=== PATIENT | male | born 1940 | race Caucasian/White ===

== ENCOUNTER 2018-04-19 16:34 | Outpatient (CLI) | payer MEDICARE ==
--- NOTE | 2018-04-19 18:22 | RAD ---
ABDOMEN TWO VIEW WITH ONE VIEW CHEST X-RAY 04/19/18 HISTORY: Constipation. COMPARISON: Abdomen radiograph from 2016. FINDINGS: Heart size is enlarged. Pulmonary arteries are enlarged. Mild increased interstitial markings. IMPRESSION: No dilated air filled loops of large or small bowel. No abnormal calcification projecting over the re nal shadows. Cardiac valve is noted. IMPRESSION: 1. No acute intra-abdominal abnormality. 2. Cardiomegaly with mild pulmonary venous congestion and early edema. 3. Pulmonary arterial hypertension. POS: [facility]
== END 2018-04-19 16:35 | disposition home or self-care (01) ==
LOC: SCSRAD 16:34
PROVIDERS: ATTEND Nurse Practitioner Family
DX: K59.00 Constipation, unspecified (principal); I11.0 Hypertensive heart disease with heart failure; I50.32 Chronic diastolic (congestive) heart failure; R06.02 Shortness of breath; R05 Cough; E66.9 Obesity, unspecified; Z98.890 Other specified postprocedural states; Z95.2 Presence of prosthetic heart valve; Z71.89 Other specified counseling; I51.7 Cardiomegaly; J81.1 Chronic pulmonary edema; I27.21 Secondary pulmonary arterial hypertension; R09.89 Other specified symptoms and signs involving the circulatory and respiratory systems
CPT/HCPCS: 36415; 74022; 80053; 83880; 84443; 85025

== ENCOUNTER 2018-04-25 10:44 | Outpatient (CLI) | payer MEDICARE ==
--- NOTE | 2018-04-25 12:03 | RAD ---
PA AND LATERAL CHEST XRAY: DATE: 04/25/18. HISTORY: The patient reports fluid on lungs. Followup evaluation. COMPARISON: 04/19/18. 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 Car diac silhouette does appear mildly enlarged. Pulmonary vasculature is within normal limits. There a re minimal linear densities at each lung base, probably related to mild scarring. Calcified granulom a ovaries the right lung base. Degenerative changes are again noted in the spine. There is a linear calcification seen in the retrosternal location which may represent pleural-based calcifications. T here has been no significant interval change from the prior exam. IMPRESSION: 1. No acute cardiopulmonary process. 2. Cardiomegaly without overt congestive heart failure. POS: [facility]
== END 2018-04-25 10:45 | disposition home or self-care (01) ==
LOC: SCSRAD 10:44
PROVIDERS: ATTEND Nurse Practitioner Family
DX: I50.32 Chronic diastolic (congestive) heart failure (principal); I48.2 Chronic atrial fibrillation; I27.21 Secondary pulmonary arterial hypertension; R05 Cough; R06.02 Shortness of breath; K59.00 Constipation, unspecified; R19.00 Intra-abdominal and pelvic swelling, mass and lump, unspecified site; I10 Essential (primary) hypertension; E66.9 Obesity, unspecified; I51.7 Cardiomegaly; Z71.89 Other specified counseling; Z98.890 Other specified postprocedural states
CPT/HCPCS: 71046; 83036; 83880; 85025

== ENCOUNTER 2019-01-31 08:51 | Outpatient (CLI) | payer MEDICARE ==
--- NOTE | 2019-01-31 11:59 | CT ---
CT abdomen and pelvis with IV and oral contrast HISTORY: Abdominal pain. Abdominal wall masses. COMPARISON: Multiple exams back to 12/21/2007. FINDINGS: Calcified granulomata at the lung bases and in the solid organs are consistent with healed granulomatous disease. Calcification throughout the arterial structures. Small renal cysts are now apparent. No evidence of bowel obstruction or inflammation. Degenerative changes lumbar spine. The oval homogeneous soft tissue density mass at the right anterolateral abdominal wall between the o blique musculature is 1.3 cm length by 0.4 cm depth, unchanged from 01/11/2016 exam. The oval well-circumscribed soft tissue density mass between the posterior oblique musculature at the left flank is 2.9 cm length by 1.3 cm depth, unchanged from the previous study. No new masses are apparent. Fat protrudes into a left inguinal hernia that does not contain bowel. IMPRESSION: Stable CT appearance of the bilateral abdominal wall masses. No new masses are apparent. Atherosclerosis. IMPRESSION: apparent.
== END 2019-01-31 08:52 | disposition home or self-care (01) ==
LOC: BICCT 08:51
PROVIDERS: ATTEND Nurse Practitioner Family
DX: R19.00 Intra-abdominal and pelvic swelling, mass and lump, unspecified site (principal); E78.5 Hyperlipidemia, unspecified; E53.8 Deficiency of other specified B group vitamins; I11.0 Hypertensive heart disease with heart failure; I50.32 Chronic diastolic (congestive) heart failure; D36.10 Benign neoplasm of peripheral nerves and autonomic nervous system, unspecified; M10.9 Gout, unspecified; K64.8 Other hemorrhoids; I48.2 Chronic atrial fibrillation; K57.30 Diverticulosis of large intestine without perforation or abscess without bleeding; R10.9 Unspecified abdominal pain; I70.90 Unspecified atherosclerosis; Z95.2 Presence of prosthetic heart valve; Z86.010 Personal history of colon polyps; Z71.89 Other specified counseling
CPT/HCPCS: 74177

== ENCOUNTER 2019-07-08 12:35 | Outpatient (CLI) | payer MEDICARE ==
--- NOTE | 2019-07-08 12:55 | RAD ---
Exam:3 views right ankle HISTORY: Pain. Gout. COMPARISON: None FINDINGS: Joint spaces are preserved. No fracture or malalignment. There is soft tissue swelling. IMPRESSION: Soft tissue swelling. No evidence of fracture or significant loss of joint space height.
== END 2019-07-08 12:36 | disposition home or self-care (01) ==
LOC: BICRAD 12:35
PROVIDERS: ATTEND Nurse Practitioner Family
DX: M25.571 Pain in right ankle and joints of right foot (principal); M10.9 Gout, unspecified; M25.471 Effusion, right ankle; E78.5 Hyperlipidemia, unspecified; I10 Essential (primary) hypertension; E66.9 Obesity, unspecified; I48.20 Chronic atrial fibrillation, unspecified; M79.89 Other specified soft tissue disorders; Z71.89 Other specified counseling; Z98.890 Other specified postprocedural states
CPT/HCPCS: 36415; 80053; 83520; 84550; 85025; 86200

== ENCOUNTER 2021-05-10 19:00 | Outpatient (CLI) | payer MEDICARE | END 2021-05-10 19:01 | disposition home or self-care (01) | LOC: SLEEPLAB 19:00 | PROVIDERS: ATTEND Internal Medicine Cardiovascular Disease | DX: G47.33 Obstructive sleep apnea (adult) (pediatric) (principal) | CPT/HCPCS: 95811 ==

== ENCOUNTER 2021-08-31 07:35 | Outpatient (CLI) | payer MEDICARE | END 2021-08-31 07:36 | disposition home or self-care (01) | LOC: CT 07:35 | PROVIDERS: ATTEND Family Medicine | DX: R19.00 Intra-abdominal and pelvic swelling, mass and lump, unspecified site (principal); R10.10 Upper abdominal pain, unspecified; N28.1 Cyst of kidney, acquired | CPT/HCPCS: 74178 ==

== ENCOUNTER 2021-10-07 09:32 | Outpatient (CLI) | payer MEDICARE | END 2021-10-07 09:33 | disposition home or self-care (01) | LOC: CT 09:32 | PROVIDERS: ATTEND Internal Medicine Cardiovascular Disease | DX: R51.9 Headache, unspecified (principal); I67.82 Cerebral ischemia; G93.89 Other specified disorders of brain | CPT/HCPCS: 70450 ==

== ENCOUNTER 2022-08-08 12:31 | Outpatient (CLI) | payer MEDICARE | END 2022-08-08 12:32 | disposition home or self-care (01) | LOC: TBSIIMAG 12:31 | PROVIDERS: ATTEND Family Medicine | DX: M51.14 Intervertebral disc disorders with radiculopathy, thoracic region (principal) | CPT/HCPCS: 72146 ==

== ENCOUNTER 2022-09-05 13:17 | Outpatient (CLI) | payer MEDICARE | END 2022-09-05 13:18 | disposition home or self-care (01) | LOC: RAD 13:17 | PROVIDERS: ATTEND Family Medicine | DX: R13.10 Dysphagia, unspecified (principal); K22.89 Other specified disease of esophagus | CPT/HCPCS: 74220 ==

== ENCOUNTER 2022-09-12 13:00 | Outpatient (CLI) | payer MEDICARE | END 2022-09-12 13:01 | disposition home or self-care (01) | LOC: BICRAD 13:00 | PROVIDERS: ATTEND Family Medicine | DX: R07.81 Pleurodynia (principal) ==

== ENCOUNTER 2022-09-23 10:26 | Inpatient (IN) | payer MEDICARE ==
[2022-09-23 11:05] LABS: #Eosinphils 0.2 thou/uL (0.0-0.7); #Lymphocytes 0.9 thou/uL (1.20-3.40); #Monocytes 0.8 thou/uL (0.11-0.59); #Neutrophils 6.8 thou/uL (1.40-6.50); %Basophils 0.6 % (0.0-1.0); %Eosinophils 2.2 % (0.0-10.0); %Lymphocytes 10.3 % (21.0-51.0); %Monocytes 8.8 % (0.0-10.0); %Neutrophils 78.2 % (42.0-75.0); Hemoglobin 7.8 g/dL (14.0-18.0); Mean Corpuscular HGB CONC 28.8 g/dL (32.0-36.0); Mean Corpuscular Hemoglobin 18.7 pg (27.0-31.0); Mean Corpuscular Volume 64.9 fl (78.0-98.0); Mean Platelet Volume 11.4 fL (7.4-10.4); Platelet Count 272 10x3/uL (130-400); RBC Distribution Width 18.9 % (11.5-14.5); Red Blood Cell (RBC) Count 4.17 mill/uL (4.70-6.10); White Blood Cell (WBC) Count 8.6 10x3/uL (4.8-10.8)
[2022-09-23 11:18] LABS: INR-International Normal Ratio 2.8; PTT 70.5 sec (22.9-36.1); Prothrombin Time 30.5 sec (12.0-14.7)
[2022-09-23 11:26] LABS: ALT (SGPT) 19 U/L (8-55); AST (SGOT) 25 U/L (5-34); Albumin 3.9 g/dL (3.4-4.8); Alkaline Phosphatase 126 U/L (40-110); Anion Gap 14 mmol/L (10-20); BUN (Urea Nitrogen) 16 mg/dL (8.4-25.7); Bilirubin, Total 0.7 mg/dL (0.2-1.2); Calc. Creatinine Clearance 0 mL/min (70-130); Calcium 8.8 mg/dL (7.8-10.44); Carbon Dioxide 27 mmol/L (23-31); Chloride 99 mmol/L (98-107); Estimated GFR 61; Globulin 3.3 g/dL (2.4-3.5); Glucose 82 mg/dL (83-110); Potassium 3.5 mmol/L (3.5-5.1); Protein, Total 7.2 g/dL (5.8-8.1); Sodium 136 mmol/L (136-145)
[2022-09-23] MEDS ORDERED: Furosemide 40 MG/4 ML VIAL ONE (12:49)
[2022-09-23] MEDS ORDERED: Ondansetron PF 4 MG/2 ML Vial IVP PRN (13:02)
[2022-09-23] MEDS ORDERED: Acetaminophen 325 MG TAB PO PRN (13:02)
[2022-09-23] MEDS ORDERED: Ondansetron ODT 4 MG TAB PO PRN (13:02)
[2022-09-23 14:27] LABS: Iron 24 ug/dL (65-175); Iron Binding Capacity, Total 534 mcg/dL (261-462)
[2022-09-23 16:14] VITALS: BMI 30.1
[2022-09-23 16:21] LABS: Iron 24 ug/dL (65-175); Iron Binding Capacity, Total 543 mcg/dL (261-462)
[2022-09-23] MEDS ORDERED: Phytonadione 5 MG TAB PO SCH (18:45)
[2022-09-23] MEDS: Spironolactone 25 MG TAB PO SCH (20:11)
[2022-09-23] MEDS: Torsemide 20 MG TAB PO SCH (20:11)
[2022-09-24 06:53] LABS: #Basophils 0.1 thou/uL (0.0-0.2); #Eosinphils 0.2 thou/uL (0.0-0.7); #Lymphocytes 1.1 thou/uL (1.20-3.40); #Monocytes 0.7 thou/uL (0.11-0.59); #Neutrophils 6.9 thou/uL (1.40-6.50); %Basophils 0.8 % (0.0-1.0); %Eosinophils 2.4 % (0.0-10.0); %Lymphocytes 11.7 % (21.0-51.0); %Monocytes 7.5 % (0.0-10.0); %Neutrophils 77.6 % (42.0-75.0); Hemoglobin 8.3 g/dL (14.0-18.0); Mean Corpuscular HGB CONC 29.9 g/dL (32.0-36.0); Mean Platelet Volume 11.5 fL (7.4-10.4); Platelet Count 274 10x3/uL (130-400); RBC Distribution Width 21.3 % (11.5-14.5); Red Blood Cell (RBC) Count 4.14 mill/uL (4.70-6.10); White Blood Cell (WBC) Count 8.9 10x3/uL (4.8-10.8)
[2022-09-24 07:13] LABS: Anion Gap 12 mmol/L (10-20); BUN (Urea Nitrogen) 16 mg/dL (8.4-25.7); Calc. Creatinine Clearance 76 mL/min (70-130); Calcium 8.9 mg/dL (7.8-10.44); Carbon Dioxide 28 mmol/L (23-31); Chloride 100 mmol/L (98-107); Estimated GFR 74; Glucose 98 mg/dL (83-110); Potassium 3.6 mmol/L (3.5-5.1); Sodium 136 mmol/L (136-145)
[2022-09-24 09:07] LABS: INR-International Normal Ratio 2.1; Prothrombin Time 24.4 sec (12.0-14.7)
[2022-09-24] MEDS: Spironolactone 25 MG TAB PO SCH ×2 (10:10→19:40)
[2022-09-24] MEDS: Allopurinol 100 MG TAB PO SCH (10:10)
[2022-09-24] MEDS: Torsemide 20 MG TAB PO SCH ×2 (10:10→19:40)
[2022-09-24] MEDS: Potassium Chloride 10 MEQ TAB PO SCH (10:10)
[2022-09-24] MEDS: Rosuvastatin 20 MG TAB PO SCH (10:10)
[2022-09-24] MEDS: Empagliflozin 10 MG TAB PO SCH (10:11)
[2022-09-24] MEDS ORDERED: GoLYTELY 4,000 ml Bottle PO SCH (18:00)
[2022-09-24 20:16] LABS: SARS-CoV-2 NAA Rapid Test Not Detected (NotDetected)
[2022-09-25 06:57] LABS: Hemoglobin 8.6 g/dL (14.0-18.0); Mean Corpuscular HGB CONC 29.6 g/dL (32.0-36.0); Mean Corpuscular Hemoglobin 19.8 pg (27.0-31.0); Mean Platelet Volume 11.6 fL (7.4-10.4); Platelet Count 293 10x3/uL (130-400); Red Blood Cell (RBC) Count 4.32 mill/uL (4.70-6.10); White Blood Cell (WBC) Count 9.2 10x3/uL (4.8-10.8)
[2022-09-25 07:00] LABS: INR-International Normal Ratio 1.4; Prothrombin Time 17.3 sec (12.0-14.7)
[2022-09-25 07:14] LABS: Anion Gap 14 mmol/L (10-20); BUN (Urea Nitrogen) 15 mg/dL (8.4-25.7); Calc. Creatinine Clearance 72 mL/min (70-130); Calcium 8.5 mg/dL (7.8-10.44); Carbon Dioxide 30 mmol/L (23-31); Chloride 93 mmol/L (98-107); Estimated GFR 69; Glucose 98 mg/dL (83-110); Potassium 3.4 mmol/L (3.5-5.1); Sodium 134 mmol/L (136-145)
[2022-09-25 07:43] LABS: #Basophils 0.1 thou/uL (0.0-0.2); #Eosinphils 0.2 thou/uL (0.0-0.7); #Monocytes 0.7 thou/uL (0.11-0.59); #Neutrophils 7.2 thou/uL (1.40-6.50); %Basophils 0.7 % (0.0-1.0); %Eosinophils 2.7 % (0.0-10.0); %Lymphocytes 10.5 % (21.0-51.0); %Neutrophils 78.1 % (42.0-75.0); Anisocytosis MODERATE=16-30 cells (100X) (0-5/hpf); Hypochromia SLIGHT = 6-15 cells (100X) (0-5/hpf); Large Platelets SLIGHT; MDiff Complete? YES; Microcytosis MODERATE=15-30 cells (100X) (0-5/hpf); Ovalocytes SLIGHT = 2-5 cells (100X) (0-1/hpf); Platelet Morphology Comment Appears Adequate; Polychromasia SLIGHT = 2-3 cells (100X) (0-2/hpf); Schistocytes SLIGHT = 2-5 cells (100X) (0-1/hpf); Stomatocytes SLIGHT = 2-5 cells (100X) (0-1/hpf); Tear Drops SLIGHT = 2-5 cells (100X) (0-1/hpf)
[2022-09-25] MEDS ORDERED: PROPOFOL 200 MG/20 ML VIAL ONE (09:10)
[2022-09-25] MEDS ORDERED: Ketamine 50 MG/ML (10ML VIAL) ONE (09:11)
[2022-09-25] MEDS: Allopurinol 100 MG TAB PO SCH (11:19)
[2022-09-25] MEDS: Torsemide 20 MG TAB PO SCH ×2 (11:20→19:53)
[2022-09-25] MEDS: Rosuvastatin 20 MG TAB PO SCH (11:20)
[2022-09-25] MEDS: Potassium Chloride 10 MEQ TAB PO SCH (11:20)
[2022-09-25] MEDS: Spironolactone 25 MG TAB PO SCH ×2 (11:20→19:53)
[2022-09-25] MEDS: Empagliflozin 10 MG TAB PO SCH (11:20)
[2022-09-25] MEDS ORDERED: Iron Sucrose Complex 100 MG in Sodium Chloride 0.9% 100 ML IVPB SCH (13:15)
[2022-09-25] MEDS ORDERED: Iron, Sodium Ferric Gluconate 125 MG in Sodium Chloride 0.9% 100 ML IVPB SCH (13:30)
[2022-09-25] MEDS ORDERED: Warfarin Sodium 5 MG TAB PO SCH (17:00)
[2022-09-26 06:43] LABS: INR-International Normal Ratio 1.2; Prothrombin Time 15.1 sec (12.0-14.7)
[2022-09-26 06:51] LABS: #Eosinphils 0.2 thou/uL (0.0-0.7); #Lymphocytes 1.1 thou/uL (1.20-3.40); #Monocytes 0.8 thou/uL (0.11-0.59); #Neutrophils 7.3 thou/uL (1.40-6.50); %Basophils 0.3 % (0.0-1.0); %Eosinophils 2.1 % (0.0-10.0); %Monocytes 8.6 % (0.0-10.0); %Neutrophils 76.9 % (42.0-75.0); Hemoglobin 8.6 g/dL (14.0-18.0); Mean Corpuscular HGB CONC 29.3 g/dL (32.0-36.0); Mean Corpuscular Hemoglobin 19.8 pg (27.0-31.0); Mean Corpuscular Volume 67.4 fl (78.0-98.0); RBC Distribution Width 22.6 % (11.5-14.5); Red Blood Cell (RBC) Count 4.33 mill/uL (4.70-6.10); White Blood Cell (WBC) Count 9.5 10x3/uL (4.8-10.8)
[2022-09-26 06:57] LABS: Anion Gap 15 mmol/L (10-20); BUN (Urea Nitrogen) 13 mg/dL (8.4-25.7); Calc. Creatinine Clearance 72 mL/min (70-130); Calcium 8.5 mg/dL (7.8-10.44); Carbon Dioxide 25 mmol/L (23-31); Chloride 99 mmol/L (98-107); Estimated GFR 69; Glucose 93 mg/dL (83-110); Potassium 3.7 mmol/L (3.5-5.1); Sodium 135 mmol/L (136-145)
[2022-09-26 08:27] LABS: Hypochromia MODERATE=16-30 cells (100X) (0-5/hpf); MDiff Complete? YES; Mean Platelet Volume 5.3 fL (7.4-10.4); Microcytosis MODERATE=15-30 cells (100X) (0-5/hpf); Ovalocytes SLIGHT = 2-5 cells (100X) (0-1/hpf); Platelet Count 278 10x3/uL (130-400); Platelet Morphology Comment Appears Adequate; Polychromasia SLIGHT = 2-3 cells (100X) (0-2/hpf)
[2022-09-26] MEDS: Potassium Chloride 10 MEQ TAB PO SCH (08:56)
[2022-09-26] MEDS: Torsemide 20 MG TAB PO SCH (08:57)
[2022-09-26] MEDS: Spironolactone 25 MG TAB PO SCH (08:57)
[2022-09-26] MEDS: Empagliflozin 10 MG TAB PO SCH (08:57)
[2022-09-26] MEDS: Allopurinol 100 MG TAB PO SCH (08:58)
[2022-09-26] MEDS: Rosuvastatin 20 MG TAB PO SCH (08:58)
[2022-09-26] MEDS ORDERED: Warfarin Sodium 7.5 MG TAB PO SCH (09:00)
[2022-09-26 11:26] VITALS: BP 130/59; TEMP 97.8
== END 2022-09-26 12:40 | disposition home or self-care (01) | DRG 811 ==
LOC: ERS 10:26 → T4-B 14:12 → OBSVTOIN 09-25 14:11
PROVIDERS: ADMIT Internal Medicine; ATTEND Internal Medicine
PROC: 30233N1 Transfusion of Nonautologous Red Blood Cells into Peripheral Vein, Percutaneous Approach (ICD-10-PCS; principal; 2022-09-23)
PROC: 0DBK8ZX Excision of Ascending Colon, Via Natural or Artificial Opening Endoscopic, Diagnostic (ICD-10-PCS; 2022-09-25)
PROC: 0DB98ZX Excision of Duodenum, Via Natural or Artificial Opening Endoscopic, Diagnostic (ICD-10-PCS; 2022-09-25)
PROC: 0W3P8ZZ Control Bleeding in Gastrointestinal Tract, Via Natural or Artificial Opening Endoscopic (ICD-10-PCS; 2022-09-25)
PROC: 0DBM8ZZ Excision of Descending Colon, Via Natural or Artificial Opening Endoscopic (ICD-10-PCS; 2022-09-25)
DX: D50.9 Iron deficiency anemia, unspecified (principal); K31.811 Angiodysplasia of stomach and duodenum with bleeding; I13.0 Hypertensive heart and chronic kidney disease with heart failure and stage 1 through stage 4 chronic kidney disease, or unspecified chronic kidney disease; I48.20 Chronic atrial fibrillation, unspecified; I50.32 Chronic diastolic (congestive) heart failure; Z66 Do not resuscitate; Z20.822 Contact with and (suspected) exposure to COVID-19; K63.5 Polyp of colon; K64.8 Other hemorrhoids; E78.00 Pure hypercholesterolemia, unspecified; K57.30 Diverticulosis of large intestine without perforation or abscess without bleeding; N18.9 Chronic kidney disease, unspecified; Z79.01 Long term (current) use of anticoagulants; Z90.49 Acquired absence of other specified parts of digestive tract; Z95.2 Presence of prosthetic heart valve; Z79.899 Other long term (current) drug therapy; Z87.891 Personal history of nicotine dependence
CPT/HCPCS: 36415; 36430; 71045; 80048; 80053; 82274; 82728; 83540; 83550; 84484; 85025; 85610; 85730; 86850; 86900; 86901; 88305; 93005; 96374; 96375; G0378; J1611; J1940; J2704; J2916; J3490; P9016; U0002

== ENCOUNTER 2024-01-24 07:56 | Outpatient (CLI) | payer MEDICARE | END 2024-01-24 07:57 | disposition home or self-care (01) | LOC: ULT 07:56 | PROVIDERS: ATTEND Internal Medicine | DX: E83.111 Hemochromatosis due to repeated red blood cell transfusions (principal); D84.9 Immunodeficiency, unspecified; R16.1 Splenomegaly, not elsewhere classified; M79.89 Other specified soft tissue disorders | CPT/HCPCS: 76700 ==

== ENCOUNTER 2024-07-30 09:59 | Inpatient (IN) | payer MEDICARE ==
[2024-07-30 10:55] LABS: #Basophils 0.07 10x3/uL (0.0-0.2); %Basophils 0.8 % (0.0-1.0); %Eosinophils 2.6 % (0.0-10.0); %Lymphocytes 10.3 % (21.0-51.0); %Monocytes 6.6 % (0.0-10.0); %Neutrophils 79.4 % (42.0-75.0); Hematocrit 43.8 % (42.0-52.0); Hemoglobin 14.7 g/dL (14.0-18.0); Mean Corpuscular HGB CONC 33.6 g/dL (32.0-36.0); Mean Corpuscular Hemoglobin 30.4 pg (27.0-31.0); Mean Corpuscular Volume 90.7 fL (78.0-98.0); Mean Platelet Volume 9.3 fL (7.4-10.4); Platelet Count 222 10x3/uL (130-400); RBC Distribution Width 15.9 % (11.5-14.5); Red Blood Cell (RBC) Count 4.83 mill/uL (4.70-6.10)
[2024-07-30 11:11] LABS: INR-International Normal Ratio 2.4; Prothrombin Time 26.5 sec (12.0-14.7)
[2024-07-30] MEDS ORDERED: Morphine 2 MG/ML VIAL ONE (11:11)
[2024-07-30 11:12] LABS: PTT 53.2 sec (22.9-36.1)
[2024-07-30 11:23] LABS: ALT (SGPT) 14 U/L (8-55); AST (SGOT) 26 U/L (5-34); Albumin 3.9 g/dL (3.4-4.8); Alkaline Phosphatase 87 U/L (40-110); Anion Gap 12 mmol/L (10-20); BUN (Urea Nitrogen) 12 mg/dL (8.4-25.7); Bilirubin, Total 0.6 mg/dL (0.2-1.2); Calc. Creatinine Clearance 0 mL/min (70-130); Calcium 8.8 mg/dL (7.8-10.44); Carbon Dioxide 26 mmol/L (23-31); Chloride 98 mmol/L (98-107); Estimated GFR 63; Globulin 3.2 g/dL (2.4-3.5); Glucose 134 mg/dL (83-110); Potassium 3.3 mmol/L (3.5-5.1); Protein, Total 7.1 g/dL (5.8-8.1); Sodium 133 mmol/L (136-145)
[2024-07-30 11:43] LABS: Troponin I 0.037 ng/mL (< 0.028)
[2024-07-30] MEDS ORDERED: Nitroglycerin 2% Ointment 1 INCH/1 GM Packet ONE (12:13)
[2024-07-30] MEDS ORDERED: Guaifenesin DM 100-10/5 ML UDCUP PO PRN (13:42)
[2024-07-30] MEDS ORDERED: Ondansetron PF 4 MG/2 ML Vial IVP PRN (13:42)
[2024-07-30] MEDS ORDERED: hydrALAZINE 20 MG/ML VIAL SLOW IVP PRN (13:42)
[2024-07-30] MEDS ORDERED: Ondansetron ODT 4 MG TAB PO PRN (13:42)
[2024-07-30] MEDS: Nitroglycerin 2% Ointment 1 INCH/1 GM Packet TOP SCH (14:21)
[2024-07-30] MEDS ORDERED: Furosemide 20 MG (2 mL) VIAL ONE (14:24)
[2024-07-30] MEDS: Furosemide 20 MG (2 mL) VIAL SLOW IVP SCH (14:30)
[2024-07-30 14:35] LABS: Troponin I 0.771 ng/mL (< 0.028)
[2024-07-30] MEDS: Warfarin Sodium 5 MG TAB PO SCH (18:09)
[2024-07-30 18:40] LABS: Troponin I 1.573 ng/mL (< 0.028)
[2024-07-30] MEDS: Famotidine 20 MG TAB PO SCH (21:24)
[2024-07-31] MEDS: Benzonatate 100 MG CAP PO PRN (03:03)
[2024-07-31 05:05] LABS: #Basophils 0.05 10x3/uL (0.0-0.2); %Basophils 0.5 % (0.0-1.0); %Eosinophils 2.4 % (0.0-10.0); %Lymphocytes 9.1 % (21.0-51.0); %Neutrophils 80.7 % (42.0-75.0); Hematocrit 37.6 % (42.0-52.0); Hemoglobin 12.5 g/dL (14.0-18.0); Mean Corpuscular HGB CONC 33.2 g/dL (32.0-36.0); Mean Corpuscular Volume 90.4 fL (78.0-98.0); Mean Platelet Volume 9.6 fL (7.4-10.4); Platelet Count 191 10x3/uL (130-400); RBC Distribution Width 15.9 % (11.5-14.5); Red Blood Cell (RBC) Count 4.16 mill/uL (4.70-6.10)
[2024-07-31 05:27] LABS: Anion Gap 12 mmol/L (10-20); BUN (Urea Nitrogen) 15 mg/dL (8.4-25.7); Calc. Creatinine Clearance 70 mL/min (70-130); Calcium 8.5 mg/dL (7.8-10.44); Carbon Dioxide 27 mmol/L (23-31); Cardiac Risk 3.1 (Less than 4.5); Chloride 103 mmol/L (98-107); Cholesterol 106 mg/dl (< 200 Desired); Estimated GFR 73; Glucose 111 mg/dL (83-110); HDL Cholesterol 34 mg/dL (>60 Neg Risk); LDL Cholesterol, Calculated 47 mg/dL; Sodium 139 mmol/L (136-145); Triglycerides 123 mg/dL (Less than 150)
[2024-07-31 05:28] LABS: INR-International Normal Ratio 2.4; Prothrombin Time 26.5 sec (12.0-14.7)
[2024-07-31] MEDS: Potassium Chloride 20 MEQ TAB PO SCH (09:05)
[2024-07-31] MEDS: Pantoprazole DR 40 MG TAB PO SCH (09:05)
[2024-07-31] MEDS: Aspirin Chewable 81 MG TAB PO SCH (09:05)
[2024-07-31 09:06] LABS: Magnesium 2.1 mg/dL (1.6-2.6)
[2024-07-31] MEDS: Empagliflozin 10 MG TAB PO SCH (11:43)
[2024-07-31] MEDS: Furosemide 20 MG (2 mL) VIAL SLOW IVP SCH ×2 (11:43→14:15)
[2024-07-31] MEDS: Spironolactone 25 MG TAB PO SCH ×2 (11:43→17:03)
[2024-07-31] MEDS ORDERED: Warfarin Sodium 7.5 MG TAB PO SCH (17:00)
[2024-07-31] MEDS: Rosuvastatin 20 MG TAB PO SCH (20:05)
[2024-07-31] MEDS: Enoxaparin 100 MG (1 mL) SYRINGE SC SCH (20:05)
[2024-08-01 05:19] LABS: INR-International Normal Ratio 1.7; Prothrombin Time 19.7 sec (12.0-14.7)
[2024-08-01 05:50] LABS: Iron 58 ug/dL (65-175); Iron Binding Capacity, Total 303 mcg/dL (261-462)
[2024-08-01] MEDS: Empagliflozin 10 MG TAB PO SCH (09:25)
[2024-08-01] MEDS ORDERED: Communication Order-Pharmacy FS SCH (13:15)
[2024-08-01] MEDS: Fluticasone Propionate Nasal Spray 16 gm Bottle NASAL SCH (13:46)
[2024-08-01 15:04] LABS: Anion Gap 15 mmol/L (10-20); BUN (Urea Nitrogen) 22 mg/dL (8.4-25.7); Calc. Creatinine Clearance 61 mL/min (70-130); Calcium 9.4 mg/dL (7.8-10.44); Carbon Dioxide 26 mmol/L (23-31); Chloride 100 mmol/L (98-107); Estimated GFR 62; Glucose 105 mg/dL (83-110); Potassium 3.8 mmol/L (3.5-5.1); Sodium 137 mmol/L (136-145)
[2024-08-01] MEDS: Acetaminophen 500 MG TAB PO PRN (21:06)
[2024-08-02 05:18] VITALS: BMI 28.3
[2024-08-02] MEDS: Sodium Chloride 0.9% 1,000 ML IV SCH (05:58)
[2024-08-02] MEDS ORDERED: Verapamil 5 MG/2 ML VIAL ONE (06:14)
[2024-08-02] MEDS ORDERED: Heparin 10,000 UNITS/ 10 ML VIAL ONE (06:14)
[2024-08-02] MEDS ORDERED: Midazolam HCl 2 mg/2 ml Vial ONE (06:14)
[2024-08-02] MEDS ORDERED: fentaNYL 50 mcg/mL 1 mL Vial ONE (06:14)
[2024-08-02] MEDS ORDERED: Nitroglycerin 50 MG/250 ML BOT 250 ML ONE (06:15)
[2024-08-02] MEDS ORDERED: Atropine Sulfate 1 mg/10 ml Syringe ONE (08:07)
[2024-08-02] MEDS ORDERED: Sodium Chloride 0.9% 200 ML IV PRN (09:10)
[2024-08-02] MEDS: Fluticasone Propionate Nasal Spray 16 gm Bottle NASAL SCH (10:00)
[2024-08-02] MEDS: Potassium Chloride 10 MEQ TAB PO SCH (10:00)
[2024-08-02] MEDS ORDERED: Iopamidol 370 76% 100 ML VIAL ONE ×2 (10:20)
[2024-08-02] MEDS: Sodium Chloride 0.9% 250 ML IV SCH (10:48)
[2024-08-02] MEDS ORDERED: Warfarin Sodium 5 MG TAB PO SCH (17:00)
[2024-08-02 17:13] LABS: INR-International Normal Ratio 1.1; Prothrombin Time 14.7 sec (12.0-14.7)
[2024-08-02] MEDS: Warfarin Sodium 7.5 MG TAB PO SCH (18:07)
[2024-08-02] MEDS: Enoxaparin 100 MG (1 mL) SYRINGE SC SCH (21:15)
[2024-08-02] MEDS: Acetaminophen/Codeine 30-300mg Tablet PO PRN (21:22)
[2024-08-03 05:01] LABS: INR-International Normal Ratio 1.2; Prothrombin Time 15.2 sec (12.0-14.7)
[2024-08-03] MEDS: Warfarin Sodium 5 MG TAB PO SCH (08:39)
[2024-08-03] MEDS: Empagliflozin 10 MG TAB PO SCH (08:40)
[2024-08-03] MEDS: LevoFLOXacin 500 MG TAB PO SCH (12:26)
[2024-08-03] MEDS: Sacubitril 24MG/Valsartan 26 MG TAB PO SCH (21:33)
[2024-08-04 05:22] LABS: INR-International Normal Ratio 1.7; Prothrombin Time 20.2 sec (12.0-14.7)
[2024-08-04 05:23] LABS: PTT 69.9 sec (22.9-36.1)
[2024-08-04] MEDS: LevoFLOXacin 500 MG TAB PO SCH (06:03)
[2024-08-04 07:20] LABS: #Basophils 0.05 10x3/uL (0.0-0.2); %Basophils 0.6 % (0.0-1.0); %Eosinophils 2.3 % (0.0-10.0); %Lymphocytes 9.6 % (21.0-51.0); %Neutrophils 78.1 % (42.0-75.0); Hematocrit 33.8 % (42.0-52.0); Mean Corpuscular HGB CONC 32.5 g/dL (32.0-36.0); Mean Corpuscular Hemoglobin 30.6 pg (27.0-31.0); Mean Corpuscular Volume 93.9 fL (78.0-98.0); Mean Platelet Volume 9.6 fL (7.4-10.4); Platelet Count 182 10x3/uL (130-400); RBC Distribution Width 16.5 % (11.5-14.5)
[2024-08-04 07:38] LABS: ALT (SGPT) 10 U/L (8-55); AST (SGOT) 21 U/L (5-34); Alkaline Phosphatase 71 U/L (40-110); Anion Gap 15 mmol/L (10-20); BUN (Urea Nitrogen) 23 mg/dL (8.4-25.7); Bilirubin, Total 0.4 mg/dL (0.2-1.2); Calc. Creatinine Clearance 54 mL/min (70-130); Calcium 8.4 mg/dL (7.8-10.44); Carbon Dioxide 22 mmol/L (23-31); Chloride 100 mmol/L (98-107); Estimated GFR 55; Globulin 2.8 g/dL (2.4-3.5); Glucose 98 mg/dL (83-110); Potassium 3.7 mmol/L (3.5-5.1); Protein, Total 5.8 g/dL (5.8-8.1); Sodium 133 mmol/L (136-145)
[2024-08-04] MEDS: Sodium Chloride 0.9% 250 ML 250 ML IV SCH (13:45)
[2024-08-04 15:56] VITALS: TEMP 98.3
[2024-08-04 18:12] VITALS: BP 108/57
== END 2024-08-04 18:36 | disposition home or self-care (01) | DRG 280 ==
LOC: ERS 09:59 → ERHOLD 12:27 → OBS 17:05 → OBSVTOIN 07-31 14:49 → OBS 08-02 16:22
PROVIDERS: ADMIT Family Medicine; ATTEND Internal Medicine
PROC: 4A023N7 Measurement of Cardiac Sampling and Pressure, Left Heart, Percutaneous Approach (ICD-10-PCS; principal; 2024-08-02)
PROC: B2151ZZ Fluoroscopy of Left Heart using Low Osmolar Contrast (ICD-10-PCS; 2024-08-02)
PROC: B2101ZZ Fluoroscopy of Single Coronary Artery using Low Osmolar Contrast (ICD-10-PCS; 2024-08-02)
DX: I21.4 Non-ST elevation (NSTEMI) myocardial infarction (principal); I50.33 Acute on chronic diastolic (congestive) heart failure; I48.11 Longstanding persistent atrial fibrillation; E87.1 Hypo-osmolality and hyponatremia; I11.0 Hypertensive heart disease with heart failure; D50.9 Iron deficiency anemia, unspecified; E78.5 Hyperlipidemia, unspecified; E87.6 Hypokalemia; I27.20 Pulmonary hypertension, unspecified; J01.90 Acute sinusitis, unspecified; Z90.49 Acquired absence of other specified parts of digestive tract; Z98.890 Other specified postprocedural states; Z79.899 Other long term (current) drug therapy; Z79.01 Long term (current) use of anticoagulants; Z87.891 Personal history of nicotine dependence; Z79.82 Long term (current) use of aspirin
CPT/HCPCS: 36415; 71045; 80048; 80053; 80061; 82728; 83540; 83550; 83735; 83880; 84484; 85025; 85610; 85730; 93005; 93306; 93454; 96374; 96375; 96376; 99152; 99153; C1769; C1894; G0378; J0461; J1644; J1650; J1940; J2250; J2272; J2405; J3010; Q9967

== ENCOUNTER 2025-06-02 14:56 | Emergency (ER) | payer MEDICARE ==
[2025-06-02 16:49] LABS: #Basophils 0.05 10x3/uL (0.0-0.2); #Eosinophils 0.12 10x3/uL (0.0-0.7); #Monocytes 0.53 10x3/uL (0.11-0.59); #Neutrophils 5.78 10x3/uL (1.40-6.50); %Basophils 0.7 % (0.0-1.0); %Eosinophils 1.6 % (0.0-10.0); %Lymphocytes 11.9 % (21.0-51.0); %Monocytes 7.2 % (0.0-10.0); %Neutrophils 78.3 % (42.0-75.0); Hematocrit 41.2 % (42.0-52.0); Hemoglobin 13.5 g/dL (14.0-18.0); Mean Corpuscular Hemoglobin 28.7 pg (27.0-31.0); Mean Corpuscular Volume 87.7 fL (78.0-98.0); Platelet Count 228 10x3/uL (130-400); Red Blood Cell (RBC) Count 4.70 mill/uL (4.70-6.10); White Blood Cell (WBC) Count 7.38 10x3/uL (4.8-10.8)
[2025-06-02 17:04] LABS: Bacteria/HPF None Seen HPF (None Seen); CAUTI Indications for Culture Dysuria,urgency,freq; Glucose, Urine (Dipstick) Greater than 1000 mg/dL (Negative); Leukocyte Negative Leu/uL (Negative); Protein, Urine (Dipstick) Negative (Neg-Trace); RBC/HPF 0-3 HPF (0-3); Specific Gravity, Urine 1.013 (1.002-1.036); WBC/HPF 0-3 HPF (0-3)
[2025-06-02 17:06] LABS: Urine Culture Reflex No No
[2025-06-02 17:33] LABS: ALT (SGPT) 21 U/L (Less than 45); AST (SGOT) 47 U/L (11-34); Albumin 3.8 g/dL (3.1-4.5); Alkaline Phosphatase 212 U/L (40-110); Anion Gap 17 mmol/L (10-20); BUN (Urea Nitrogen) 16 mg/dL (8.4-25.7); Bilirubin, Total 0.7 mg/dL (0.3-1.2); Calc. Creatinine Clearance 0 mL/min (70-130); Calcium 9.2 mg/dL (7.8-10.44); Carbon Dioxide 28 mmol/L (23-31); Chloride 102 mmol/L (98-107); Globulin 3.7 g/dL (2.4-3.5); Glucose 99 mg/dL (83-110); Potassium 3.8 mmol/L (3.5-5.1); Sodium 143 mmol/L (136-145)
== END 2025-06-02 18:54 | disposition home or self-care (01) ==
LOC: ERS 14:56
DX: R33.9 Retention of urine, unspecified (principal); I11.0 Hypertensive heart disease with heart failure; I50.9 Heart failure, unspecified; I48.91 Unspecified atrial fibrillation; Z87.891 Personal history of nicotine dependence
CPT/HCPCS: 36415; 51702; 80053; 81015; 85025; 85610; 87086; 99283

== ENCOUNTER 2025-06-03 11:08 | Emergency (ER) | payer MEDICARE ==
[2025-06-03 12:03] LABS: #Basophils 0.03 10x3/uL (0.0-0.2); #Eosinophils 0.07 10x3/uL (0.0-0.7); #Monocytes 0.52 10x3/uL (0.11-0.59); #Neutrophils 7.28 10x3/uL (1.40-6.50); %Basophils 0.4 % (0.0-1.0); %Eosinophils 0.8 % (0.0-10.0); %Lymphocytes 5.7 % (21.0-51.0); %Monocytes 6.2 % (0.0-10.0); %Neutrophils 86.5 % (42.0-75.0); Hematocrit 38.9 % (42.0-52.0); Hemoglobin 12.8 g/dL (14.0-18.0); Mean Corpuscular Hemoglobin 28.9 pg (27.0-31.0); Mean Corpuscular Volume 87.8 fL (78.0-98.0); Platelet Count 202 10x3/uL (130-400); Red Blood Cell (RBC) Count 4.43 mill/uL (4.70-6.10); White Blood Cell (WBC) Count 8.41 10x3/uL (4.8-10.8)
[2025-06-03 12:13] LABS: Bacteria/HPF 1+ HPF (None Seen); CAUTI Indications for Culture Dysuria,urgency,freq; Glucose, Urine (Dipstick) Greater than 1000 mg/dL (Negative); Leukocyte 250 Leu/uL (Negative); Protein, Urine (Dipstick) 10 mg/dL (Neg-Trace); RBC/HPF Greater than 50 HPF (0-3); Specific Gravity, Urine 1.009 (1.002-1.036); WBC/HPF 21-50 HPF (0-3)
[2025-06-03 12:14] LABS: Urine Culture Reflex Yes Yes
[2025-06-03 12:16] LABS: INR-International Normal Ratio 3.1; Prothrombin Time 31.8 sec (12.0-14.7)
[2025-06-03 12:18] LABS: PTT 111.9 sec (22.9-36.1)
[2025-06-03 12:22] LABS: ALT (SGPT) 19 U/L (Less than 45); AST (SGOT) 48 U/L (11-34); Albumin 3.6 g/dL (3.1-4.5); Alkaline Phosphatase 203 U/L (40-110); Anion Gap 17 mmol/L (10-20); BUN (Urea Nitrogen) 13 mg/dL (8.4-25.7); Bilirubin, Total 0.9 mg/dL (0.3-1.2); Calc. Creatinine Clearance 0 mL/min (70-130); Calcium 9.0 mg/dL (7.8-10.44); Carbon Dioxide 26 mmol/L (23-31); Chloride 101 mmol/L (98-107); Globulin 3.4 g/dL (2.4-3.5); Glucose 99 mg/dL (83-110); Potassium 3.5 mmol/L (3.5-5.1); Sodium 140 mmol/L (136-145)
== END 2025-06-03 13:28 | disposition home or self-care (01) ==
LOC: ERS 11:08
DX: T83.091A Other mechanical complication of indwelling urethral catheter, initial encounter (principal); N39.0 Urinary tract infection, site not specified; I11.0 Hypertensive heart disease with heart failure; I48.91 Unspecified atrial fibrillation; I50.9 Heart failure, unspecified; Z79.01 Long term (current) use of anticoagulants; Z79.899 Other long term (current) drug therapy; Z87.891 Personal history of nicotine dependence; Y73.8 Miscellaneous gastroenterology and urology devices associated with adverse incidents, not elsewhere classified
CPT/HCPCS: 36415; 80053; 81001; 85025; 85610; 85730; 93005; 99284

== ENCOUNTER 2025-07-28 20:31 | Emergency (ER) | payer MEDICARE ==
[2025-07-28 21:38] LABS: #Basophils 0.06 10x3/uL (0.0-0.2); #Eosinophils 0.09 10x3/uL (0.0-0.7); #Monocytes 0.53 10x3/uL (0.11-0.59); #Neutrophils 7.08 10x3/uL (1.40-6.50); %Basophils 0.7 % (0.0-1.0); %Eosinophils 1.1 % (0.0-10.0); %Lymphocytes 6.5 % (21.0-51.0); %Monocytes 6.3 % (0.0-10.0); %Neutrophils 83.5 % (42.0-75.0); Hematocrit 29.7 % (42.0-52.0); Hemoglobin 9.2 g/dL (14.0-18.0); Mean Corpuscular Hemoglobin 28.4 pg (27.0-31.0); Mean Corpuscular Volume 91.7 fL (78.0-98.0); Platelet Count 272 10x3/uL (130-400); Red Blood Cell (RBC) Count 3.24 mill/uL (4.70-6.10); White Blood Cell (WBC) Count 8.47 10x3/uL (4.8-10.8)
[2025-07-28 21:41] LABS: Bacteria/HPF 2+ HPF (None Seen); CAUTI Indications for Culture Dysuria,urgency,freq; Glucose, Urine (Dipstick) Greater than 1000 mg/dL (Negative); Leukocyte 500 Leu/uL (Negative); Protein, Urine (Dipstick) Negative (Neg-Trace); RBC/HPF 0-3 HPF (0-3); Specific Gravity, Urine 1.016 (1.002-1.036); WBC/HPF Greater than 50 HPF (0-3)
[2025-07-28 21:42] LABS: Urine Culture Reflex Yes Yes
[2025-07-28 21:54] LABS: ALT (SGPT) 13 U/L (Less than 45); AST (SGOT) 36 U/L (11-34); Albumin 3.1 g/dL (3.1-4.5); Alkaline Phosphatase 346 U/L (40-110); Anion Gap 15 mmol/L (10-20); BUN (Urea Nitrogen) 17 mg/dL (8.4-25.7); Bilirubin, Total 0.4 mg/dL (0.3-1.2); Calc. Creatinine Clearance 0 mL/min (70-130); Calcium 8.9 mg/dL (7.8-10.44); Carbon Dioxide 21 mmol/L (23-31); Chloride 103 mmol/L (98-107); Globulin 3.6 g/dL (2.4-3.5); Glucose 108 mg/dL (83-110); Potassium 4.2 mmol/L (3.5-5.1); Sodium 135 mmol/L (136-145)
[2025-07-28] MEDS ORDERED: Ciprofloxacin 500 MG TAB ONE (21:56)
== END 2025-07-28 22:15 | disposition home or self-care (01) ==
LOC: ERS 20:31
DX: N39.0 Urinary tract infection, site not specified (principal); I11.0 Hypertensive heart disease with heart failure; I50.9 Heart failure, unspecified; Z87.891 Personal history of nicotine dependence
CPT/HCPCS: 51702; 80053; 81001; 85025; 87077; 87086; 87186; 99283

== ENCOUNTER 2025-08-09 16:12 | Inpatient (IN) | payer MEDICARE ==
[2025-08-09 18:50] LABS: #Basophils 0.04 10x3/uL (0.0-0.2); #Eosinophils 0.11 10x3/uL (0.0-0.7); #Monocytes 0.74 10x3/uL (0.11-0.59); #Neutrophils 8.26 10x3/uL (1.40-6.50); %Basophils 0.4 % (0.0-1.0); %Eosinophils 1.1 % (0.0-10.0); %Lymphocytes 7.9 % (21.0-51.0); %Monocytes 7.2 % (0.0-10.0); %Neutrophils 81.0 % (42.0-75.0); Hematocrit 24.3 % (42.0-52.0); Hemoglobin 7.2 g/dL (14.0-18.0); Mean Corpuscular Hemoglobin 26.9 pg (27.0-31.0); Mean Corpuscular Volume 90.7 fL (78.0-98.0); Platelet Count 358 10x3/uL (130-400); Red Blood Cell (RBC) Count 2.68 mill/uL (4.70-6.10); White Blood Cell (WBC) Count 10.21 10x3/uL (4.8-10.8)
[2025-08-09 19:05] LABS: ALT (SGPT) 13 U/L (Less than 45); AST (SGOT) 42 U/L (11-34); Albumin 2.8 g/dL (3.1-4.5); Alkaline Phosphatase 375 U/L (40-110); Anion Gap 9 mmol/L (10-20); BUN (Urea Nitrogen) 17 mg/dL (8.4-25.7); Bilirubin, Total 0.3 mg/dL (0.3-1.2); Calc. Creatinine Clearance 0 mL/min (70-130); Calcium 8.1 mg/dL (7.8-10.44); Carbon Dioxide 22 mmol/L (23-31); Chloride 103 mmol/L (98-107); Globulin 3.7 g/dL (2.4-3.5); Glucose 106 mg/dL (83-110); INR-International Normal Ratio 5.2; Iron 33 ug/dL (65-175); Iron Binding Capacity, Total 259 mcg/dL (261-462); Potassium 4.6 mmol/L (3.5-5.1); Prothrombin Time 48.3 sec (12.0-14.7); Sodium 129 mmol/L (136-145)
[2025-08-09 19:38] VITALS: BMI 28.3
[2025-08-10 05:37] LABS: #Basophils 0.04 10x3/uL (0.0-0.2); #Eosinophils 0.11 10x3/uL (0.0-0.7); #Monocytes 0.60 10x3/uL (0.11-0.59); #Neutrophils 6.61 10x3/uL (1.40-6.50); %Basophils 0.5 % (0.0-1.0); %Eosinophils 1.4 % (0.0-10.0); %Lymphocytes 7.4 % (21.0-51.0); %Monocytes 7.4 % (0.0-10.0); %Neutrophils 81.1 % (42.0-75.0); Hematocrit 26.6 % (42.0-52.0); Hemoglobin 8.2 g/dL (14.0-18.0); Mean Corpuscular Hemoglobin 27.4 pg (27.0-31.0); Mean Corpuscular Volume 89.0 fL (78.0-98.0); Platelet Count 319 10x3/uL (130-400); Red Blood Cell (RBC) Count 2.99 mill/uL (4.70-6.10); White Blood Cell (WBC) Count 8.14 10x3/uL (4.8-10.8)
[2025-08-10 05:51] LABS: Anion Gap 7 mmol/L (10-20); BUN (Urea Nitrogen) 13 mg/dL (8.4-25.7); Calc. Creatinine Clearance 76 mL/min (70-130); Calcium 8.4 mg/dL (7.8-10.44); Carbon Dioxide 23 mmol/L (23-31); Chloride 104 mmol/L (98-107); Glucose 92 mg/dL (83-110); Potassium 4.6 mmol/L (3.5-5.1); Sodium 129 mmol/L (136-145)
[2025-08-10 06:17] LABS: INR-International Normal Ratio 4.1; Prothrombin Time 39.9 sec (12.0-14.7)
[2025-08-10] MEDS: Spironolactone 25 MG TAB PO SCH (20:36)
[2025-08-11 05:30] LABS: #Basophils 0.04 10x3/uL (0.0-0.2); #Eosinophils 0.12 10x3/uL (0.0-0.7); #Monocytes 0.60 10x3/uL (0.11-0.59); #Neutrophils 6.43 10x3/uL (1.40-6.50); %Basophils 0.5 % (0.0-1.0); %Eosinophils 1.5 % (0.0-10.0); %Lymphocytes 8.5 % (21.0-51.0); %Monocytes 7.5 % (0.0-10.0); %Neutrophils 80.3 % (42.0-75.0); Hematocrit 26.1 % (42.0-52.0); Hemoglobin 8.2 g/dL (14.0-18.0); Mean Corpuscular Hemoglobin 27.6 pg (27.0-31.0); Mean Corpuscular Volume 87.9 fL (78.0-98.0); Platelet Count 301 10x3/uL (130-400); Red Blood Cell (RBC) Count 2.97 mill/uL (4.70-6.10); White Blood Cell (WBC) Count 8.01 10x3/uL (4.8-10.8)
[2025-08-11 05:48] LABS: INR-International Normal Ratio 2.7; Prothrombin Time 29.2 sec (12.0-14.7)
[2025-08-11 06:06] LABS: Anion Gap 9 mmol/L (10-20); BUN (Urea Nitrogen) 12 mg/dL (8.4-25.7); Calc. Creatinine Clearance 88 mL/min (70-130); Calcium 8.4 mg/dL (7.8-10.44); Carbon Dioxide 23 mmol/L (23-31); Chloride 102 mmol/L (98-107); Glucose 94 mg/dL (83-110); Potassium 4.4 mmol/L (3.5-5.1); Sodium 130 mmol/L (136-145)
[2025-08-11] MEDS ORDERED: PHENYLEPHRINE-NS 100 MCG/ML 10 ML SYRINGE ONE (12:15)
[2025-08-11] MEDS ORDERED: PROPOFOL 200 MG/20 ML VIAL ONE (12:15)
[2025-08-11] MEDS ORDERED: Lidocaine 1% PF 5 ML VIAL ONE (12:15)
[2025-08-11] MEDS ORDERED: GLYCOPYRROLATE/PF 0.2 MG/ML VIAL ONE (12:20)
[2025-08-11] MEDS: Allopurinol 100 MG TAB PO SCH (15:04)
[2025-08-11] MEDS: Metoprolol Succinate XL 25 MG ER.TAB PO SCH (15:05)
[2025-08-11] MEDS: Losartan 25 MG TAB PO SCH (15:05)
[2025-08-11] MEDS: Cholecalciferol 1,000 UNITS (25 MCG) TAB PO SCH (15:05)
[2025-08-11] MEDS: Rosuvastatin 20 MG TAB PO SCH (15:06)
[2025-08-11] MEDS: Pantoprazole 40 MG DR.TAB PO SCH (15:06)
[2025-08-12] MEDS: Acetaminophen 325 MG TAB PO PRN (03:57)
[2025-08-12 04:38] LABS: #Basophils 0.03 10x3/uL (0.0-0.2); #Eosinophils 0.12 10x3/uL (0.0-0.7); #Monocytes 0.62 10x3/uL (0.11-0.59); #Neutrophils 7.00 10x3/uL (1.40-6.50); %Basophils 0.4 % (0.0-1.0); %Eosinophils 1.4 % (0.0-10.0); %Lymphocytes 7.1 % (21.0-51.0); %Monocytes 7.3 % (0.0-10.0); %Neutrophils 82.3 % (42.0-75.0); Hematocrit 25.7 % (42.0-52.0); Hemoglobin 7.9 g/dL (14.0-18.0); Mean Corpuscular Hemoglobin 27.1 pg (27.0-31.0); Mean Corpuscular Volume 88.0 fL (78.0-98.0); Platelet Count 274 10x3/uL (130-400); Red Blood Cell (RBC) Count 2.92 mill/uL (4.70-6.10); White Blood Cell (WBC) Count 8.50 10x3/uL (4.8-10.8)
[2025-08-12 05:02] LABS: INR-International Normal Ratio 1.7; Prothrombin Time 19.9 sec (12.0-14.7)
[2025-08-12 05:13] LABS: Anion Gap 13 mmol/L (10-20); BUN (Urea Nitrogen) 13 mg/dL (8.4-25.7); Calc. Creatinine Clearance 88 mL/min (70-130); Calcium 8.4 mg/dL (7.8-10.44); Carbon Dioxide 23 mmol/L (23-31); Chloride 100 mmol/L (98-107); Glucose 105 mg/dL (83-110); Potassium 4.4 mmol/L (3.5-5.1); Sodium 132 mmol/L (136-145)
[2025-08-12 12:32] VITALS: BP 126/60; TEMP 97.7
== END 2025-08-12 14:50 | disposition home or self-care (01) | DRG 378 ==
LOC: 2NO 16:12
PROVIDERS: ADMIT Family Medicine; ATTEND Internal Medicine
PROC: 0W3P8ZZ Control Bleeding in Gastrointestinal Tract, Via Natural or Artificial Opening Endoscopic (ICD-10-PCS; principal; 2025-08-11)
PROC: 30233N1 Transfusion of Nonautologous Red Blood Cells into Peripheral Vein, Percutaneous Approach (ICD-10-PCS; 2025-08-11)
DX: K55.21 Angiodysplasia of colon with hemorrhage (principal); I50.22 Chronic systolic (congestive) heart failure; Z79.01 Long term (current) use of anticoagulants; I11.0 Hypertensive heart disease with heart failure; N40.0 Benign prostatic hyperplasia without lower urinary tract symptoms; Z79.899 Other long term (current) drug therapy
CPT/HCPCS: 36415; 36430; 80048; 80053; 83540; 83550; 83615; 85025; 85046; 85610; 86850; 86900; 86901; J1644; J2704; J3490; P9016